=== PATIENT | female | born 1990 | race African-American/Black ===

== ENCOUNTER 2017-08-11 01:01 | Emergency (ER) | payer OTHER ==
[2017-08-11 01:10] VITALS: BP 137/94; PULSE 99; TEMP 98.2; BMI 37.2
[2017-08-11 03:02] LABS: BASO % 0.4 % (0-2.0); EOS % 0.9 % (0-4.5); HEMATOCRIT 34.1 % (32.4-45.2); HEMOGLOBIN 11.3 GM/dL (10.7-15.3); LYMPH % 31.8 % (8-40); MCH 28.9 pg (25.7-33.7); MCHC 33.1 g/dl (32.0-36.0); MEAN CELL VOLUME 87.2 fl (80-96); MEAN PLT VOLUME 8.2 fl (7.5-11.1); MONO % 7.7 % (3.8-10.2); NEUT % 59.2 % (42.8-82.8); PLATELET COUNT 165 K/MM3 (134-434); RBC 3.92 M/mm3 (3.60-5.2); RDW 14.1 % (11.6-15.6); WHITE BLOOD COUNT 6.8 K/mm3 (4.0-10.0)
--- NOTE | 2017-08-11 03:05 | PDOC ---
History of Present Illness <Karen Parada - Last Filed: 08/11/17 03:52> - General History Source: Patient Exam Limitations: No Limitations - History of Present Illness Initial Comments: 08/11/17 04:18 The patient is a 26 year old female with a past medical history of anemia who presents to the ED with complaints of chest pain since earlier today. The patient states she was at work when she had a sudden onset of non radiating mid sternal chest pain. The patient states her chest pain is progressively worsening and sharp. Patient reports recent travels to [facility] in July. Denies fever or chills. Denies lower extremity edema or pain. Denies sore throat or ear pain. Denies cough or shortness of breath. Denies nausea, vomiting , or diarrhea. Denies any other symptoms. 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 <Estephania Joe - Last Filed: 08/11/17 04:19> - General Chief Complaint: Chest Pain Stated Complaint: CHEST PAIN Time Seen by Provider: 08/11/17 01:09 Past History - Past Medical History Anemia: Yes COPD: No - Suicide/Smoking/Psychosocial Hx Smoking History: Never smoked Information on smoking cessation initiated: No Hx Alcohol Use: No Drug/Substance Use Hx: No Substance Use Type: None <Karen Parada - Last Filed: 08/11/17 03:52> <Estephania Joe - Last Filed: 08/11/17 04:19> - Past Medical History Allergies/Adverse Reactions: Allergies Allergy/AdvReac Type Severity Reaction Status Date / Time No Known Allergies Allergy Verified 08/11/17 01:05 Home Medications: Ambulatory Orders NK [No Known Home Medication] 08/11/17 Review of Systems - Review of Systems Able to Perform ROS?: Yes Comments:: 08/11/17 04:18 CONSTITUTIONAL: Absent: fever, chills, diaphoresis, generalized weakness, malaise, loss of appetite HEENT: Absent: rhinorrhea, nasal congestion, throat pain, throat swelling, difficulty swallowing, mouth swelling, ear pain, eye pain, visual Changes CARDIOVASCULAR: + chest pain Absent: syncope, palpitations, irregular heart rate, lightheadedness, peripheral edema RESPIRATORY: Absent: cough, shortness of breath, dyspnea with exertion, orthopnea, wheezing, stridor, hemoptysis GASTROINTESTINAL: Absent: abdominal pain, abdominal distension, nausea, vomiting, diarrhea, constipation, melena, hematochezia GENITOURINARY: Absent: dysuria, frequency, urgency, hesitancy, hematuria, flank pain, genital pain MUSCULOSKELETAL: Absent: myalgia, arthralgia, joint swelling SKIN: Absent: rash, itching, pallor HEMATOLOGIC/IMMUNOLOGIC: Absent: easy bleeding, easy bruising, lymphadenopathy, frequent infections ENDOCRINE: Absent: unexplained weight gain, unexplained weight loss, heat intolerance, cold intolerance NEUROLOGIC: Absent: headache, focal weakness or paresthesias, dizziness, unsteady gait, seizure, mental status changes, bladder or bowel incontinence PSYCHIATRIC: Absent: anxiety, depression, suicidal or homicidal ideation, hallucinations. All Other Systems: Reviewed and Negative <Estephania Joe - Last Filed: 08/11/17 04:19> *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 - Vital Signs Last Vital Signs Temp Pulse Resp BP Pulse Ox 98.2 F 99 H 19 137/94 98 08/11/17 01:03 08/11/17 01:03 08/11/17 01:03 08/11/17 01:03 08/11/17 01:03 <Karen Parada - Last Filed: 08/11/17 03:52> - Vital Signs Last Vital Signs Temp Pulse Resp BP Pulse Ox 98.2 F 99 H 19 137/94 98 08/11/17 01:03 08/11/17 01:03 08/11/17 01:03 08/11/17 01:03 08/11/17 01:03 - 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 Comments: 08/11/17 04:18 GENERAL: Well developed, well nourished. Awake and alert. No acute distress. HEENT: Normocephalic, atraumatic. PERRLA, EOMI. No conjunctival pallor. Sclera are non- icteric. Moist mucous membranes. Oropharynx is clear. NECK: Supple. Full ROM. No JVD. Carotid pulses 2+ and symmetric, without bruits. No thyromegaly. NCo lymphadenopathy. CARDIOVASCULAR: Regular rate and rhythm. No murmurs, rubs, or gallops. Distal pulses are 2+ and symmetric. PULMONARY: No evidence of respiratory distress. Lungs clear to auscultation bilaterally. No wheezing, rales or rhonchi. ABDOMINAL: Soft. Non-tender. Non-distended. No rebound or guarding. No organomegaly. Normoactive bowel sounds. MUSCULOSKELETAL Normal range of motion at all joints. No bony deformities or tenderness. No CVA tenderness. EXTREMITIES: No cyanosis. No clubbing. No edema. No calf tenderness. SKIN: Warm and dry. Normal capillary refill. No rashes. No jaundice. NEUROLOGICAL: Alert, awake, appropriate. Cranial nerves 2-12 intact. No deficits to light touch and temperature in face, upper extremities and lower extremities. No motor deficits in the in face, upper extremities and lower extremities. Normoreflexic in the upper and lower extremities. Normal speech. Toes are down- going bilaterally. Gait is normal without ataxia. PSYCHIATRIC: Cooperative. Good eye contact. Appropriate mood and affect. <Estephania Joe - Last Filed: 08/11/17 04:19> ED Treatment Course - LABORATORY CBC & Chemistry Diagram: 08/11/17 02:25 08/11/17 02:25 - RADIOLOGY Radiology Studies Ordered: Category Date Time Status CHEST PA & LAT [RAD] Stat Radiology 08/11/17 02:34 Ordered <Karen Parada - Last Filed: 08/11/17 03:52> - LABORATORY CBC & Chemistry Diagram: 08/11/17 02:25 08/11/17 02:25 - ADDITIONAL ORDERS Additional order review: Laboratory Results 08/11/17 08/11/17 08/11/17 02:25 02:25 02:25 PT with INR 13.10 H INR 1.16 H Sodium 139 Potassium 3.9 Chloride 103 Carbon Dioxide 27 Anion Gap 9 BUN 16 Creatinine 1.0 Creat Clearance w eGFR > 60 Random Glucose 90 Calcium 8.6 Total Bilirubin 0.4 AST 15 ALT 17 Alkaline Phosphatase 90 Creatine Kinase 269 H Creatine Kinase Index 0.6 CK-MB (CK-2) 1.665 Troponin I < 0.02 Total Protein 7.5 Albumin 3.7 Serum , Qual Negative 08/11/17 02:25 RBC 3.92 MCV 87.2 MCHC 33.1 RDW 14.1 MPV 8.2 Neutrophils % 59.2 Lymphocytes % 31.8 Monocytes % 7.7 Eosinophils % 0.9 Basophils % 0.4 <Estephania Joe - Last Filed: 08/11/17 04:19> Medical Decision Making - Medical Decision Making 08/11/17 03:52 Pt comes with atypical chest pain that began earlier today. SHe states that the pain is MSCP and epigastric. Pt has normal vitals and she is afebrile and he has no tachycardia and no fever and no cough and her BP is equal in her arms bilaterally. SHe has an EKG that shows anteroseptal flipped T waves and we have nothing to compare it to. We are getting a repeat EKG. Pt's cardiac enzymes and all of her labs are normal. She states that she may be , as she has irreg menses and she is not sure. Pt has a negative serum preg. Pt's CXR is normal. Pt states that she traveled 2 days ago from [place]. Pt seems anxious; she states that her mom is really ill at [facility] with her DM , HTN, distal leg wounds and impending kidney failure. Pt is upset and her current CP may be a manifestation of her emotional upset. <Karen Parada - Last Filed: 08/11/17 03:52> *DC/Admit/Observation/Transfer - Discharge Dispostion Admit: No <Karen Parada - Last Filed: 08/11/17 03:52> - Attestations Scribe Attestion: 08/11/17 04:19 Documentation prepared by Estephania Joe, acting as medical pathology teacher for Karen Parada MD <Estephania Joe - Last Filed: 08/11/17 04:19> Diagnosis at time of Disposition: Atypical chest pain - Discharge Dispostion Disposition: HOME Condition at time of disposition: Stable - Referrals Referrals: Felice Garzno MD [Staff Physician] - - Patient Instructions Printed Discharge Instructions: DI for Atypical Chest Pain
[2017-08-11 03:21] LABS: INR 1.16 (0.82-1.09); PROTHROMBIN TIME (PATIENT) 13.1 SEC (9.98-11.88)
[2017-08-11 03:40] LABS: ALBUMIN 3.7 g/dl (3.4-5.0); ANION GAP 9 (8-16); BILIRUBIN,TOTAL 0.4 mg/dL (0.2-1.0); BLOOD UREA NITROGEN 16 mg/dL (7-18); CALCIUM 8.6 mg/dL (8.5-10.1); CHLORIDE 103 mmol/L (98-107); CO2 27 mmol/L (21-32); GLUCOSE,RANDOM 90 mg/dL (74-106); POTASSIUM 3.9 mmol/L (3.5-5.1); SGOT/AST 15 U/L (15-37); SGPT/ALT 17 U/L (12-78); SODIUM 139 mmol/L (136-145); TOT PROT 7.5 g/dl (6.4-8.2)
[2017-08-11 03:43] LABS: ALK PHOS 90 U/L (45-117)
[2017-08-11] MEDS ORDERED: MAG HYDROX/AL HYDROX/SIMETH 30 ML UNIT-DOSE CUP PO ONE (04:12)
[2017-08-11] MEDS ORDERED: ACETAMINOPHEN 500 MG TABLET (FP) PO ONE (04:12)
[2017-08-11] MEDS ORDERED: MAG HYDROX/AL HYDROX/SIMETH 30 ML UNIT-DOSE CUP ONE (04:14)
[2017-08-11] MEDS ORDERED: ACETAMINOPHEN 325 MG TABLET (FP) ONE (04:14)
--- NOTE | 2017-08-11 10:42 | EKG ---
Test Reason : Blood Pressure : / mmHG Vent. Rate : 091 BPM Atrial Rate : 091 BPM P-R Int : 170 ms QRS Dur : 084 ms QT Int : 366 ms P-R-T Axes : 051 037 012 degrees QTc Int : 450 ms NORMAL SINUS RHYTHM T WAVE ABNORMALITY, CONSIDER ANTERIOR ISCHEMIA ABNORMAL ECG NO PREVIOUS ECGS AVAILABLE Confirmed by FREDY BARCLAY, KRYSTAL ([id number]) on 08/11/2017 10:42:07 AM Referred By: Confirmed By:KRYSTAL DANIEL MD
--- NOTE | 2017-08-12 14:32 | EKG ---
Test Reason : Blood Pressure : / mmHG Vent. Rate : 074 BPM Atrial Rate : 074 BPM P-R Int : 160 ms QRS Dur : 096 ms QT Int : 380 ms P-R-T Axes : 053 019 003 degrees QTc Int : 421 ms NORMAL SINUS RHYTHM WITH SINUS ARRHYTHMIA Nonspecific anterior t wave abnormalities ABNORMAL ECG WHEN COMPARED WITH ECG OF 11-AUG-2017 01:10, NO SIGNIFICANT CHANGE WAS FOUND Confirmed by MD Mercedes, Abran ([id number]) on 08/12/2017 2:32:23 PM Referred By: Confirmed By:Abran Long MD
== END 2017-08-11 04:11 | disposition home or self-care (01) ==
LOC: JER 01:01
DX: R07.89 Other chest pain (principal)
CPT/HCPCS: 36415; 71046-TC-FY; 80053; 82550; 82553; 84484; 84703; 85025; 85610; 93005; 93010; 99283-25

== ENCOUNTER 2017-12-21 13:20 | Emergency (ER) | payer OTHER ==
[2017-12-21 13:30] VITALS: BP 141/82; PULSE 82; TEMP 98.3; BMI 30.4
--- NOTE | 2017-12-21 13:56 | PDOC ---
History of Present Illness - General Chief Complaint: Rash Stated Complaint: SKIN RASH Time Seen by Provider: 12/21/17 13:45 History Source: Patient Exam Limitations: Clinical Condition - History of Present Illness Initial Comments: 12/21/17 13:52 Patient no sig PMhx present with complains of dark rash with itching all over the for almost as week now. report she saw PCP who gave her clotrimazole topical cream which she has been using with no improvement. report rash on b/l UE, upper chest , upper back and neck areas on unknown etiology Timing/Duration: 1 week Severity: mild Modifying Factors: improves with: other (scrathing ) Associated Symptoms: reports: rash Aspirin Received prior to arrival: Yes: no aspirin today Past History - Past Medical History Allergies/Adverse Reactions: Allergies Allergy/AdvReac Type Severity Reaction Status Date / Time No Known Allergies Allergy Verified 12/21/17 13:30 Home Medications: Ambulatory Orders Hydrocortisone 2.5% Topical Cr [Anusol-Hc -] 1 applic RC BID #1 tube 12/21/17 Prednisone [Deltasone] 20 mg PO BID #10 tablet 12/21/17 Anemia: Yes COPD: No - Suicide/Smoking/Psychosocial Hx Smoking History: Never smoked Have you smoked in the past 12 months: No Information on smoking cessation initiated: No Hx Alcohol Use: No Drug/Substance Use Hx: No Substance Use Type: None Review of Systems - Review of Systems Able to Perform ROS?: Yes Is the patient limited Persian proficient: No Constitutional: No: Chills, Diaphoresis, Fever, Loss of Appetite, Malaise, Night Sweats, Weakness, Weight Stable, Unintentional Wgt. Loss, Unexplained wgt Loss, Other HEENTM: No: Eye Pain, Blurred Vision, Tearing, Recent change in vision, Double Vision, Cataracts, Ear Pain, Ocular Prothesis, Ear Discharge, Nose Pain, Nose Congestion, Tinnitus, Nose Bleeding, Hearing Loss, Throat Pain, Throat Swelling , Mouth Pain, Dental Problems, Difficulty Swallowing, Mouth Swelling, Other Respiratory: No: Cough, Orthopnea, Shortness of Breath, SOB with Exertion, SOB at Rest, Stridor, Wheezing, Productive cough, Hemoptysis, Other Cardiac (ROS): No: Chest Pain, Edema, Irregular Heart Rate, Lightheadedness, Palpitations, Syncope, Chest Tightness, Other ABD/GI: No: Abdominal Distended, Abd. Pain w/ defecation, Blood Streaked Bowels , Constipated, Diarrhea, Difficulty Swallowing, Nausea, Poor Appetite, Poor Fluid Intake, Rectal Bleeding, Vomiting, Indigestion, Abdominal cramping, Tarry Stools, Other Musculoskeletal: No: Back Pain, Gout, Joint Pain, Joint Swelling, Muscle Pain, Muscle Weakness, Neck Pain, Joint Stiffness, Other Integumentary: Yes: Pruritus (all over the body), Rash (to b/l UE, upper chest and upper back). No: Symptoms Reported, See HPI, Bruising, Change in Color, Change in Hair/Nails, Dryness, Erythema, Flushing, Lesions, Lumps, Pallor, Sweating, Other Neurological: No: Headache, Numbness, Paresthesia, Pre-Existing Deficit, Seizure , Tingling, Tremors, Weakness, Unsteady Gait, Ataxia, Dizziness, Other Psychiatric: No: Anxiety, Depression, Frequent Crying, Stressors, Sleep Pattern Change, Emotional Problems, Mood Swings, Change in Appetite, Other All Other Systems: Reviewed and Negative *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 - Vital Signs Last Vital Signs Temp Pulse Resp BP Pulse Ox 98.3 F 82 18 141/82 100 12/21/17 13:25 12/21/17 13:25 12/21/17 13:25 12/21/17 13:25 12/21/17 13:25 - 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 General Appearance: Yes: Nourished, Appropriately Dressed. No: Apparent Distress HEENT: positive: Normal ENT Inspection, TMs Normal, Pharynx Normal Neck: positive: Trachea midline, Normal Thyroid, Supple Respiratory/Chest: positive: Lungs Clear, Normal Breath Sounds. negative: Respiratory Distress, Accessory Muscle Use Cardiovascular: positive: Regular Rhythm, Regular Rate, S1, S2 Gastrointestinal/Abdominal: positive: Normal Bowel Sounds, Flat, Soft Musculoskeletal: positive: Normal Inspection Extremity: positive: Normal Capillary Refill, Normal Range of Motion Integumentary: positive: Rash (multiple dark macular rash with scales to plantar aspect of b/l UE, upper chest, neck area and upper back w/o excoriations ) Neurologic: positive: certified personal finance counselor II-XII NML intact, Fully Oriented, Alert, Normal Mood/ Affect, Normal Response Medical Decision Making - Medical Decision Making 12/21/17 13:54 Patient present with over a week h/o rash with pruritis. likely eczema rash. stable for outpatient treatment with topical and oral steroids with dermatology follow-up *DC/Admit/Observation/Transfer Diagnosis at time of Disposition: Dermatitis Eczema Qualifiers: Eczema type: unspecified Qualified Code(s): L30.9 - Dermatitis, unspecified - Discharge Dispostion Disposition: HOME Condition at time of disposition: Good Decision to Admit order: No - Prescriptions Prescriptions: Hydrocortisone 2.5% Topical Cr [Anusol-Hc -] 1 applic RC BID #1 tube Prednisone [Deltasone] 20 mg PO BID #10 tablet - Referrals Referrals: Cosmo Mcgee MD [Non Staff, Medical] - - Patient Instructions Printed Discharge Instructions: Eczema, DI for Atopic Dermatitis - Adult Additional Instructions: use medications as prescribed. follow-up with dermatology - Post Discharge Activity
== END 2017-12-21 14:01 | disposition home or self-care (01) ==
LOC: JERFT 13:20
DX: L30.9 Dermatitis, unspecified (principal)
CPT/HCPCS: 99281-25

== ENCOUNTER 2018-02-18 19:05 | Emergency (ER) | payer OTHER ==
[2018-02-18 19:09] VITALS: BP 125/73; PULSE 67; TEMP 98.3; BMI 35.1
[2018-02-18] MEDS ORDERED: FLUORESCEIN NA 1 EA STRIP ONE (19:19)
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
== END 2018-02-18 21:31 | disposition home or self-care (01) ==
LOC: JERFT 19:05
DX: S05.11XA Contusion of eyeball and orbital tissues, right eye, initial encounter (principal); X58.XXXA Exposure to other specified factors, initial encounter; Y93.89 Activity, other specified
CPT/HCPCS: 70486-TC; 84703; 99281-25

== ENCOUNTER 2020-03-14 15:48 | Inpatient (IN) | payer OTHER ==
--- OUTSIDE RECORDS SUMMARY | 2020-03-14 16:39 | XMS ---
:1998 Author Organization [facility] Re-disclosure Warning The records that you are about to access may contain information from federally- assisted alcohol or drug abuse programs. If such information is present, then the following federally mandated warning applies: This information has been disclosed to you from records protected by federal confidentiality rules (42 CFR part 2). The federal rules prohibit you from making any further disclosure of this information unless further disclosure is expressly permitted by the written consent of the person to whom it pertains or as otherwise permitted by 42 CFR part 2. A general authorization for the release of medical or other information is NOT sufficient for this purpose. The Federal rules restrict any use of the information to criminally investigate or prosecute any alcohol or drug abuse patient.The records that you are about to access may contain highly sensitive health information, the redisclosure of which is protected by Article 27-F of the [facility] Public Health law. If you continue you may haveaccess to information: Regarding HIV / AIDS; Provided by facilities licensed or operated by the [facility] Office of Mental Health; or Provided by the [facility] Office for People With Developmental Disabilities. If such information is present, then the following [facility] mandated warning applies: This information has been disclosed to you from confidential records which are protected by state law. State law prohibits you from making any further disclosure of this information without the specific written consent of the person to whom it pertains, or as otherwise permitted by law. Any unauthorized further disclosure in violation of state law may result in a fine or chcf sentence or both. A general authorization for the release of medical or other information is NOT sufficient authorization for further disclosure. Problems, Conditions, and Diagnoses Code Display Name Description Problem Type Effective Dates Data Source(s) Z71.89 Other specified Other specified Diagnosis 08/07/2018 [facility] counseling counseling 04:19:30 PM [facility]) Z68.41 Body mass index Body mass index Diagnosis 08/07/2018 [facility] (BMI) 40.0-44.9, (BMI) 40.0-44.9, 04:19:30 PM E [facility] adult [facility])
[2020-03-14] MEDS: ELECTROLYTE-148 SOLN 1,000 ML IV SCH (17:45)
[2020-03-14 17:46] VITALS: BMI 42.3
[2020-03-14 17:51] LABS: BASO % 0.4 % (0-2.0); EOS % 0.2 % (0-4.5); HEMATOCRIT 40.3 % (32.4-45.2); HEMOGLOBIN 13.5 GM/dL (10.7-15.3); INR 0.98 (0.83-1.09); LYMPH % 30.7 % (8-40); MCH 31.6 pg (25.7-33.7); MCHC 33.5 g/dl (32.0-36.0); MEAN CELL VOLUME 94.5 fl (80-96); MEAN PLT VOLUME 10.7 fl (7.5-11.1); MONO % 6.3 % (3.8-10.2); NEUT % 62.4 % (42.8-82.8); PLATELET COUNT 97 K/MM3 (134-434); PROTHROMBIN TIME (PATIENT) 11.6 SEC (9.7-13.0); RBC 4.27 M/mm3 (3.60-5.2); RDW 14.9 % (11.6-15.6); WHITE BLOOD COUNT 5.1 K/mm3 (4.0-10.0)
[2020-03-14] MEDS ORDERED: CITRIC ACID/SODIUM CITRATE 30 ML UNIT-DOSE CUP PO ONE (17:54)
[2020-03-14] MEDS ORDERED: ELECTROLYTE-148 SOLN 500 ML IV ONE (17:54)
[2020-03-14 18:14] LABS: BLOOD UREA NITROGEN 12.3 mg/dL (7-18); CALCIUM 9.5 mg/dL (8.5-10.1); CREATININE 0.7 mg/dL (0.55-1.3); POTASSIUM 4.2 mmol/L (3.5-5.1)
--- NOTE | 2020-03-14 18:24 | HP ---
Past Medical History - Primary Care Physician PCP:: Yolanda Haynes - Admission Chief Complaint: 29 yrs , 39 wks by dates, 38 wks by us admitted for delivery as per MFM recommendation . insulin dependent GDM, Macrosomia .38 wks iup, vx, efw 9'9",bpp 8/8 in view of new onset of htn ( 139/92 136/91 ) delivery is advised.pt c/o headache 2 days ago .not today History of Present Illness: pnc at [address] [place] [address] wt gain 60 lbs panel Apos, Hbsag neg, rubella immune, Quantiferon neg , t pallidumab nr, hiv neg , h/h 12.6/38.0, plt 192, sickle ng, gc/ct neg 02/25/20 : hiv neg, GBS POS , Gc.Ct neg , h/h 12.4/36.2, plt 103 12/22/19 1 hr GTT 321m , h/h 12.0/37,4 , plt 148 , hep c nr, hiv nr, , tpallidum neg BP range in clinic systolic 888339/ distolic 72-83, BP max 136/83, urine protein 1+/trace, once 2+ [facility]. 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 Weeks Gestation by Dates: 39.0 ...EDC by Dates: 03/21/20 ...EDC by Sono: 03/28/20 (38 weeks by us ) Heme/Onc: No: Anemia, Sickle Cell Trait Infectious Disease: No: AIDS, HIV, STD's, Tuberculosis Psych: No: Addictions, Anxiety, Bipolar, Depression, Panic, Psychosis, Schizophrenia, Other - Past Surgical History Past Surgical History: Yes: None Hx Myomectomy: No Hx Transabdominal Cerclage: No - Smoking History Smoking history: Never smoked Have you smoked in the past 12 months: No - Alcohol/Substance Use Hx Alcohol Use: No History of Substance Use: reports: None Home Medications - Allergies Allergies/Adverse Reactions: Allergies Allergy/AdvReac Type Severity Reaction Status Date / Time No Known Allergies Allergy Verified 03/14/20 17:33 - Home Medications Home Medications: Ambulatory Orders Insulin NPH Hum/Reg Insulin Hm [Humulin 70/30 Kwikpen] 10 unit SQ HS 03/14/20 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 - Maternity Vital Signs: Vital Signs Temperature 98.1 F 03/14/20 15:48 Pulse Rate 85 03/14/20 16:45 Respiratory Rate 18 03/14/20 16:45 Blood Pressure 121/78 03/14/20 16:45 O2 Sat by Pulse Oximetry (%) Selected Entries 03/14/20 03/14/20 03/14/20 15:48 16:15 16:30 Blood Pressure 108/54 L 115/71 118/72 Weight 287 lb Constitutional: Yes: Well Nourished, No Distress, Calm, Obese Eyes: Yes: WNL HENT: Yes: WNL, Normocephalic Neck: Yes: WNL Cardiovascular: Yes: WNL Lungs: Clear to auscultation Breast(s): Yes: WNL - Abdominal Exam/OB Fundal Height: 45 Number of Fetuses: Single Presentation: Vertex Contractions: Yes Regularity: Irregular Intensity: Unaware Monitor Mode: External Heart Rate (range): 145 Heart Rate Location: Midline Category: I Accelerations: Uniform Decelerations: None - Vaginal Exam/OB Vaginal Bleeding: No Dilatation (cm): close Effacement (%): unefface Amniotic Membrane Status: Intact Presentation: Vertex/Position Station: -4 - 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 Musculoskeletal: Yes: WNL Extremities: Yes: WNL. No: Calf Tenderness Edema: Yes Edema: LLE: 1+, RLE: 1+ Integumentary: Yes: WNL Deep Tendon Reflex Grade: Normal +2 ...Motor Strength: WNL Psychiatric: Yes: WNL, Alert, Oriented - Labs Lab Results: CBC, BMP 03/14/20 17:15 03/14/20 17:15 Laboratory Tests 03/14/20 03/14/20 17:15 18:40 Uric Acid 4.0 AST 29 ALT 35 Ur Random Creatinine 131.0 U Random Total Protein 97.0 H Protein/Creatinin Ratio 0.7 Hemorrhage Risk Assessment - Risk Factors Medium Risk Factors: Yes: Obesity (BMI >40) Risk Score: 1 Risk Level: Medium Risk Problem List - Problems (1) 39 weeks gestation of Code(s): Z3A.39 - 39 WEEKS GESTATION OF (2) Gestational diabetes mellitus (GDM) requiring insulin Code(s): O24.414 - GESTATIONAL DIABETES IN , INSULIN CONTROLLED (3) Morbid obesity with BMI of 40.0-44.9, adult Code(s): E66.01 - MORBID (SEVERE) OBESITY DUE TO EXCESS CALORIES; Z68.41 - BODY MASS INDEX [BMI]40.0-44.9, ADULT (4) Macrosomia affecting management of mother in third trimester Code(s): O36.63X0 - MATERNAL CARE FOR EXCESS GROWTH, THIRD TRIMESTER, UNSP (5) Positive GBS test Code(s): B95.1 - STREPTOCOCCUS, GROUP B, CAUSING DISEASES CLASSD ELSWHR Assessment/Plan 29 yrs 39 weeks dates, by 38 weeks by us , GDM insulin control , ? gesta tional lower plt count, macrosomia .. lft & uric acid wnl, urine prot/cr ratio 0.7 cervix unfavorable for induction of labor, pt difficult to exam vaginally. Plan rb/a explained to pt risk c/s not ltd to wound infection, hematoma; may encounter difficulty delivering baby, injury bladder, bowel , hemorrhage etc pt understands , opt for delivery by primary c/section
[2020-03-14 19:23] LABS: BILIRUBIN,DIRECT 0.2 mg/dL (0.0-0.2); BILIRUBIN,TOTAL 0.7 mg/dL (0.2-1); TOT PROT 6.9 g/dl (6.4-8.2)
[2020-03-14] MEDS ORDERED: OXYTOCIN 20 UNITS in 0.9% NS 20 UNIT/1,000 ML INFUS.BAG IV ONE ×2 (19:32→22:26)
[2020-03-14] MEDS ORDERED: ePHEDrine SULFATE 50 MG/1 ML AMPULE ONE (19:34)
[2020-03-14] MEDS ORDERED: morphine SULFATE/PF 0.5 MG/ML (2cc Syringe - QUVA) ONE (19:34)
[2020-03-14] MEDS ORDERED: PHENYLEPHRINE HCL 10 MG/1 ML SINGLE DOSE VIAL ONE (19:34)
[2020-03-14] MEDS ORDERED: ceFAZolin SODIUM 1 GM VIAL ONE (20:02)
[2020-03-14] MEDS ORDERED: METHYLERGONOVINE MALEATE 0.2 MG/1 ML AMP IM PRN (21:38)
[2020-03-14] MEDS ORDERED: oxyCODONE HCL 5 MG TABLET PO PRN (21:38)
[2020-03-14] MEDS ORDERED: SENNOSIDES/DOCUSATE COMBO (SENNA PLUS) TABLET (UD) PO PRN (21:38)
[2020-03-14] MEDS: OXYTOCIN 20 UNITS in 0.9% NS 20 UNIT/1,000 ML INFUS.BAG IV SCH (21:45)
[2020-03-14] MEDS ORDERED: ONDANSETRON 4 MG/2 ML VIAL IVPUSH PRN (21:45)
--- NOTE | 2020-03-14 22:07 | PN ---
Delivery - Delivery Section: Primary, Low Flap Transverse (38 weeks, insulin dpemdent GDM, macrosomia, morbid obesity,unfavorable cx) Type of Anesthesia: Spinal EBL (cc): 800 Delivery, Single - Stages of Labor Date of Delivery: 03/14/20 Time of Delivery: 20:18 Date Placenta Delivered: 03/14/20 Time Placenta Delivered: 20:20 Placenta: Yes: Manual Removal, Uterine Exploration - Condition of Drywall Application Supervisor/Molasses Preparer Present: Yes Name: Edwina Minor Gender: Female Weight: 9 lb 10 oz Position: Right, OT - 1 Minute Total Score: 7 5 Minutes Total Score: 9 - Feeding Plan Initial Plan: Exclusive throughout hospitalization Remarks - Remarks Remarks: 29 yrs , 38 weeks recommend delivery by MFM due to new onet HTN noted in MFM off , h/o Insulin dependent GDM morbidly obese BMI 42.4 gbs pos srom in OR just before spinal given. intraop course uneventful 2 gm iv ancef prior to incision given
--- NOTE | 2020-03-14 22:38 | OP ---
Operative Note - Note: Operative Date: 03/14/20 Pre-Operative Diagnosis: 38 weeks, insulin dependent GDM, morbid obesity, macrosomia , unfavorable cx Operation: Primary LFTC/Section Findings: 20.18 hr baby girl.vx, ROT, 7/9, wt 9'10" both tubes & ovaries normal Dr Minor present in OR Note bladder high in incision , transversely parital peritoneum opened , bilat rectus muscle disection Surgeon: Yolanda Haynes Threat Monitoring Analyst: Kimani West Anesthesiologist/SPLINE ROLLING MACHINE JOB SETTER: Deniz Cates Anesthesia: Spinal Specimens Removed: cord segment for gas. cord blood. placenta Estimated Blood Loss (mls): 800 Drains, Volume Out (mls): 300 Fluid Volume Replaced (mls): 1,600 (2gm iv ancef ) Operative Report Dictated: Yes
[2020-03-14] MEDS ORDERED: IBUPROFEN 800 MG/8 ML IJ IVPB ONE (23:18)
[2020-03-14 23:26] LABS: CORD HCO3 24.4 mmHg (20-29); CORD PCO2 80.3 mmHg (30-78); CORD pH 7.101 (7.14-7.44)
[2020-03-14 23:28] LABS: CORD BASE EXCESS -8.3 mmol/L (0-2); CORD HCO3 20.3 mmHg (20-29); CORD PCO2 53.3 mmHg (30-78); CORD pH 7.198 (7.14-7.44)
[2020-03-14] MEDS: IBUPROFEN 800 MG/8 ML IJ IVPB PRN (23:30)
[2020-03-15] MEDS: CEFAZOLIN 1 GM/D5W 1 GM/50 ML BAG IVPB SCH ×3 (01:27→18:22)
--- NOTE | 2020-03-15 08:11 | PN ---
Post Progress Note - Subjective Subjective: c/o itching pain scale 2-3/10 Post Day: 1 Type of Delivery: Primary C/S Vital Signs: Vital Signs Temperature 99.1 F 03/15/20 06:00 Pulse Rate 101 H 03/15/20 06:00 Respiratory Rate 20 03/15/20 06:00 Blood Pressure 115/78 03/15/20 06:00 O2 Sat by Pulse Oximetry (%) 98 03/15/20 01:32 Selected Entries 03/14/20 03/15/20 03/15/20 23:00 00:00 01:00 Blood Pressure 149/95 146/84 147/86 03/15/20 01:32 Blood Pressure 126/86 Breast Exam: Yes: Soft, Other (plans to BF ). No: Engorged Uterus: Yes: Fundus Firm, Fundus below umbilicus (tender ) Incision: Yes: Dressing dry and intact, Redness Abdomen/GI: Yes: Abdomen soft (bs active ), Abdominal Distention (obese), Tolerating PO (po clear liqiud ). No: Passing flatus Lochia: Yes: Rubra Lochia, amount: Moderate Extremities: Yes: Calves non-tender, Edema (scd in situ ) Perineum: Yes: Intact Activity: Other (pt with caicedo in situ ) - Labs Labs: CBC WBC 5.1 K/mm3 (4.0-10.0) 03/14/20 17:15 RBC 4.27 M/mm3 (3.60-5.2) 03/14/20 17:15 Hgb 13.5 GM/dL (10.7-15.3) 03/14/20 17:15 Hct 40.3 % (32.4-45.2) D 03/14/20 17:15 MCV 94.5 fl (80-96) 03/14/20 17:15 MCH 31.6 pg (25.7-33.7) 03/14/20 17:15 MCHC 33.5 g/dl (32.0-36.0) 03/14/20 17:15 RDW 14.9 % (11.6-15.6) 03/14/20 17:15 Plt Count 97 K/MM3 (134-434) L D 03/14/20 17:15 MPV 10.7 fl (7.5-11.1) D 03/14/20 17:15 Absolute Neuts (auto) 3.2 K/mm3 (1.5-8.0) 03/14/20 17:15 Neutrophils % 62.4 % (42.8-82.8) 03/14/20 17:15 Lymphocytes % 30.7 % (8-40) 03/14/20 17:15 Monocytes % 6.3 % (3.8-10.2) 03/14/20 17:15 Eosinophils % 0.2 % (0-4.5) 03/14/20 17:15 Basophils % 0.4 % (0-2.0) 03/14/20 17:15 Nucleated RBC % 0 % (0-0) 03/14/20 17:15 Laboratory Tests 03/14/20 03/15/20 22:58 06:30 POC Glucometer 83 81 Other Findings, Remarks: RS Cta i/o 2000/400 & 700/400 Problem List - Problems (1) 39 weeks gestation of Code(s): Z3A.39 - 39 WEEKS GESTATION OF (2) Gestational diabetes mellitus (GDM) requiring insulin Code(s): O24.414 - GESTATIONAL DIABETES IN , INSULIN CONTROLLED (3) Morbid obesity with BMI of 40.0-44.9, adult Code(s): E66.01 - MORBID (SEVERE) OBESITY DUE TO EXCESS CALORIES; Z68.41 - BODY MASS INDEX [BMI]40.0-44.9, ADULT (4) Macrosomia affecting management of mother in third trimester Code(s): O36.63X0 - MATERNAL CARE FOR EXCESS GROWTH, THIRD TRIMESTER, UNSP (5) Positive GBS test Code(s): B95.1 - STREPTOCOCCUS, GROUP B, CAUSING DISEASES CLASSD ELSWHR (6) delivery due to maternal disorder, delivered, curr hospitaliz Code(s): O99.892 - OTH DISEASES AND CONDITIONS COMPLICATING CHILDBIRTH (7) Status post section routine follow-up Code(s): Z39.2 - ENCOUNTER FOR ROUTINE FOLLOW-UP; Z98.891 - HISTORY OF UTERINE SCAR FROM PREVIOUS SURGERY Assessment/Plan post op P C/sec stable BP labile . po bgm wnl pt encouraged to do deep breathing, ambulation when caicedo is d/c ed , po fluids in NICU due to hypoglycemia will advance diet to 2500 argenis ADA when passes flatus Po cbc pending
--- NOTE | 2020-03-15 08:15 | PN ---
Progress Note (short form) - Note Progress Note: Anesthesia POD#1 S/P under Spinal A VSS, no N/V, legs fully recovered, pain is well controlled. Ida Curtis MD.
[2020-03-15] MEDS: IBUPROFEN 800 MG/8 ML IJ IVPB PRN (08:21)
[2020-03-15] MEDS: SIMETHICONE 80 MG TAB.CHEW (FP) PO PRN ×3 (08:21→22:46)
[2020-03-15 09:16] LABS: BASO % 0.2 % (0-2.0); EOS % 0.4 % (0-4.5); HEMATOCRIT 35.1 % (32.4-45.2); HEMOGLOBIN 11.8 GM/dL (10.7-15.3); LYMPH % 18.8 % (8-40); MCH 31.2 pg (25.7-33.7); MCHC 33.6 g/dl (32.0-36.0); MEAN CELL VOLUME 92.8 fl (80-96); MEAN PLT VOLUME 11.1 fl (7.5-11.1); MONO % 8.3 % (3.8-10.2); NEUT % 72.3 % (42.8-82.8); PLATELET COUNT 88 K/MM3 (134-434); RBC 3.78 M/mm3 (3.60-5.2); RDW 14.7 % (11.6-15.6); WHITE BLOOD COUNT 6.7 K/mm3 (4.0-10.0)
[2020-03-15] MEDS: ENOXAPARIN NA (PORCINE) 40 MG/0.4 ML DISP.SYRIN SQ SCH (09:28)
[2020-03-15] MEDS: IBUPROFEN 600 MG TABLET (FP) PO PRN (16:31)
[2020-03-15] MEDS: ACETAMINOPHEN 325 MG TABLET (FP) PO PRN ×2 (16:31→22:47)
[2020-03-15] MEDS: ELECTROLYTE-148 SOLN 1,000 ML IV SCH (18:28)
[2020-03-15] MEDS ORDERED: BISACODYL 10 MG SUPP.RECT RC PRN (21:38)
--- NOTE | 2020-03-16 07:09 | PN ---
Post Progress Note - Subjective Subjective: Pain controlled. No fevers/chills. OOB, ambulating. Voiding freely. +Flatus Post Day: 2 Type of Delivery: Primary C/S Vital Signs: Vital Signs Temperature 98.5 F 03/16/20 02:00 Pulse Rate 103 H 03/16/20 02:00 Respiratory Rate 16 03/16/20 02:00 Blood Pressure 125/84 03/16/20 02:00 O2 Sat by Pulse Oximetry (%) 98 03/15/20 01:32 Uterus: Yes: Fundus below umbilicus Incision: Yes: Dressing dry and intact Abdomen/GI: Yes: Abdomen soft, Passing flatus, Tolerating PO Lochia: Yes: Rubra Perineum: Yes: Intact Activity: Ambulating - Labs Labs: CBC WBC 6.7 K/mm3 (4.0-10.0) 03/15/20 07:25 RBC 3.78 M/mm3 (3.60-5.2) 03/15/20 07:25 Hgb 11.8 GM/dL (10.7-15.3) 03/15/20 07:25 Hct 35.1 % (32.4-45.2) 03/15/20 07:25 MCV 92.8 fl (80-96) 03/15/20 07:25 MCH 31.2 pg (25.7-33.7) 03/15/20 07:25 MCHC 33.6 g/dl (32.0-36.0) 03/15/20 07:25 RDW 14.7 % (11.6-15.6) 03/15/20 07:25 Plt Count 88 K/MM3 (134-434) L 03/15/20 07:25 MPV 11.1 fl (7.5-11.1) 03/15/20 07:25 Absolute Neuts (auto) 4.8 K/mm3 (1.5-8.0) 03/15/20 07:25 Neutrophils % 72.3 % (42.8-82.8) 03/15/20 07:25 Lymphocytes % 18.8 % (8-40) D 03/15/20 07:25 Monocytes % 8.3 % (3.8-10.2) 03/15/20 07:25 Eosinophils % 0.4 % (0-4.5) D 03/15/20 07:25 Basophils % 0.2 % (0-2.0) 03/15/20 07:25 Nucleated RBC % 0 % (0-0) 03/15/20 07:25 Assessment/Plan 29yo s/p PLTCS, POD#1 Routine PP care OOB, ambulate Labs reviewed D/C to home by POD#4 (given baby in NICU) Regulo Adair MD
[2020-03-16] MEDS: ENOXAPARIN NA (PORCINE) 40 MG/0.4 ML DISP.SYRIN SQ SCH (10:25)
[2020-03-16] MEDS: FERROUS SO4 325 MG TABLET (FP) PO SCH ×2 (10:25→17:11)
[2020-03-16] MEDS: PRENATAL VITAMINS W/ FOLIC ACID TABLET (FP) PO SCH (10:26)
[2020-03-16] MEDS: SIMETHICONE 80 MG TAB.CHEW (FP) PO PRN ×2 (10:26→21:40)
--- NOTE | 2020-03-16 12:24 | OP ---
DATE OF OPERATION: 03/14/2020 PREOPERATIVE DIAGNOSIS: A 38-week , insulin-dependent gestational diabetes, morbid obesity and macrosomia, unfavorable cervix. POSTOPERATIVE DIAGNOSIS: A 38-week , insulin-dependent gestational diabetes, morbid obesity and macrosomia, unfavorable cervix. OPERATION: Primary low flap transverse section. SURGEON: Yolanda Haynes MD FARROWING MANAGER: EUGENE Hess ANESTHESIOLOGIST: Deniz Cates DO UNSCRAMBLER: Edwina Minor MD FINDINGS: This is a 29-year-old 1, para 0 with insulin-dependent gestational diabetes who was noted to have new onset of hypertension in the [facility] office and they recommended delivery. Since patient is very obese and macrosomia suspected and cervix was not favorable patient opted for a . Patient was not in labor. PROCEDURE: Abdomen was shaved, prepped. Armendariz catheter was placed. SCD stockings were applied. Patient was taken to operating room table. Spinal anesthesia was given. Patient was in supine position. Abdomen was painted and draped in the usual manner and panniculus belly. Before draping while preparing the abdomen, the abdomen was taped up to have a better access for the incision and then abdomen was prepared with ChloraPrep and draped in the usual manner. Pfannenstiel incision was made through skin and subcutaneous tissue. Anterior rectus sheath was incised transversely. Bleeding points were clamped and cauterized. Rectus muscle was from the rectus sheath. Parietal peritoneum was opened higher up and the bladder was very high. Could not open further more to have a better access. The muscles were bisected on both the sides and then the bladder was pressed down with a Anuja lower blade and the lower flap of bladder peritoneum was incised and the lower uterine segment was incised transversely. Amniotic fluid was clear. Then the baby was delivered from ROT position, baby girl at 8:18 p.m. and the baby's was 7, 9 and baby's weight was 9-pound, 10-ounce. Cord was clamped. Cord blood was collected. Cord segment was sent for the cord blood gases. Placenta was removed completely with the membranes. Then the uterus was brought out of the incision. The uterine cavity was cleaned and then the uterine incision was closed in 2 layers. First layer was a continuous locking with a Biosyn 0 suture. Second layer was a continuous intermittently locking with a Biosyn 0 suture. Then the bladder peritoneum also was closed with a Biosyn 0 suture. Both tubes and ovaries were normal. Uterus was placed back into the peritoneal cavity and then the parietal peritoneum was closed in transverse fashion with a Vicryl 0 suture. Muscles were approximated together with a Biosyn 0 suture. Hemostasis was checked underneath the rectus sheath. Then rectus sheath was closed with a Vicryl 0 suture. Continuous sutures were taken. Hemostasis was verified in subcutaneous tissue. Subcutaneous tissue was approximated with a 2-0 Vicryl suture. Continuous sutures were taken. Hemostasis once again checked and skin was approximated with trisha. Pressure dressing was given. Estimated blood loss was 800 mL and urine output intraoperative was 300 mL. She received 1600 mL of IV fluids. She received 2 g of IV Ancef prior to the incision. Blood clots were removed from the vagina. Pressure dressing applied and she was transferred to the recovery room in stable condition. David [id number]
[2020-03-16] MEDS: IBUPROFEN 600 MG TABLET (FP) PO PRN ×2 (12:51→21:39)
[2020-03-16] MEDS: ACETAMINOPHEN 325 MG TABLET (FP) PO PRN ×2 (12:52→21:40)
[2020-03-16] MEDS: OXYTOCIN 20 UNITS in 0.9% NS 20 UNIT/1,000 ML INFUS.BAG IV SCH ×2 (12:53→23:21)
[2020-03-16] MEDS: ELECTROLYTE-148 SOLN 1,000 ML IV SCH (23:21)
--- NOTE | 2020-03-17 07:25 | PN ---
Progress Note (short form) - Note Progress Note: pod 3 s/p c/s doing well. ambulating , had BM CBC, BMP 03/15/20 07:25 03/14/20 17:15 Last Vital Signs Temp Pulse Resp BP Pulse Ox 98.7 F 91 H 18 154/95 99 03/16/20 22:00 03/16/20 22:00 03/16/20 22:00 03/16/20 22:00 03/16/20 22:00 abdomen soft , no distensdion, no cva incision dry, clean , no discharge no calf tenderness lochia mild plan ambulate DVT prophylaxis plan for d/c home in am
[2020-03-17] MEDS: FERROUS SO4 325 MG TABLET (FP) PO SCH ×2 (09:00→17:25)
[2020-03-17 09:04] LABS: BASO % 0.3 % (0-2.0); HEMATOCRIT 31.8 % (32.4-45.2); HEMOGLOBIN 10.5 GM/dL (10.7-15.3); LYMPH % 18.9 % (8-40); MCH 30.9 pg (25.7-33.7); MCHC 33.1 g/dl (32.0-36.0); MEAN CELL VOLUME 93.5 fl (80-96); MEAN PLT VOLUME 10.2 fl (7.5-11.1); NEUT % 72.8 % (42.8-82.8); PLATELET COUNT 104 K/MM3 (134-434); WHITE BLOOD COUNT 6.9 K/mm3 (4.0-10.0)
[2020-03-17] MEDS: PRENATAL VITAMINS W/ FOLIC ACID TABLET (FP) PO SCH (12:03)
[2020-03-17] MEDS: ENOXAPARIN NA (PORCINE) 40 MG/0.4 ML DISP.SYRIN SQ SCH (12:03)
[2020-03-17] MEDS: ACETAMINOPHEN 325 MG TABLET (FP) PO PRN ×2 (16:46→23:59)
[2020-03-17] MEDS: IBUPROFEN 600 MG TABLET (FP) PO PRN ×2 (16:47→23:58)
[2020-03-17] MEDS: SIMETHICONE 80 MG TAB.CHEW (FP) PO PRN ×2 (16:47→23:58)
[2020-03-18 10:48] VITALS: TEMP 98.1
[2020-03-18] MEDS: ENOXAPARIN NA (PORCINE) 40 MG/0.4 ML DISP.SYRIN SQ SCH (11:08)
[2020-03-18] MEDS: PRENATAL VITAMINS W/ FOLIC ACID TABLET (FP) PO SCH (11:08)
[2020-03-18] MEDS: SIMETHICONE 80 MG TAB.CHEW (FP) PO PRN ×2 (11:09→15:51)
[2020-03-18] MEDS: ACETAMINOPHEN 325 MG TABLET (FP) PO PRN ×2 (11:09→15:51)
[2020-03-18] MEDS: FERROUS SO4 325 MG TABLET (FP) PO SCH (11:09)
[2020-03-18 17:26] VITALS: BP 139/81; PULSE 86
--- NOTE | 2020-03-18 18:14 | DS ---
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-PLANT SUPERVISOR Vital Signs: Vital Signs Temperature 98.1 F 03/18/20 09:00 Pulse Rate 86 03/18/20 15:00 Respiratory Rate 20 03/18/20 15:00 Blood Pressure 139/81 03/18/20 15:00 O2 Sat by Pulse Oximetry (%) 98 03/17/20 09:50 Constitutional: Yes: Well Nourished, No Distress, Calm Eyes: Yes: WNL, Conjunctiva Clear, EOM Intact HENT: Yes: WNL, Atraumatic, Normocephalic Neck: Yes: WNL, Supple, Trachea Midline Cardiovascular: Yes: WNL, Regular Rate and Rhythm Respiratory: Yes: WNL, Regular, CTA Bilaterally Gastrointestinal: Yes: WNL ...Rectal Exam: Yes: WNL Renal/: Yes: WNL Breast(s): Yes: WNL Musculoskeletal: Yes: WNL Extremities: Yes: WNL Integumentary: Yes: WNL Neurological: Yes: WNL, Alert, Oriented ...Motor Strength: WNL Psychiatric: Yes: WNL, Alert, Oriented Labs: CBC, BMP 03/17/20 08:07 03/14/20 17:15 Delivery - Delivery Section: Primary, Low Flap Transverse (38 weeks, insulin dpemdent GDM, macrosomia, morbid obesity,unfavorable cx) Type of Anesthesia: Spinal Episiotomy/Laceration: None EBL (cc): 800 Delivery, Single - Stages of Labor Date of Delivery: 03/14/20 Time of Delivery: 20:18 Time Placenta Delivered: 20:20 Placenta: Yes: Manual Removal, Uterine Exploration - Condition of Assistant Wrestling Coach/Tractor Driver Present: Yes Name: Edwina Minor Gender: Female Weight: 9 lb 10 oz Position: Right, OT - 1 Minute Total Score: 7 5 Minutes Total Score: 9 - Feeding Plan Initial Plan: Exclusive throughout hospitalization Discharge Summary Problems reviewed: Yes GDM Procedures: Principal: primary LST c/s Hospital Course: no complication Plan of Treatment: folow up [facility] on Friday Condition: Stable - Instructions Diet, Activity, Other Instructions: Diabetic Diet Follow up in one week for an incision check Referrals: Minerva Adair MD [Staff Physician] - Disposition: HOME - Home Medications Comprehensive Discharge Medication List: Ambulatory Orders Insulin NPH Hum/Reg Insulin Hm [Humulin 70/30 Kwikpen] 10 unit SQ HS 03/14/20 Breast Pump 1 each MC 5XD 30 Days #1 each 03/16/20 Ferrous Sulfate [Feosol] 325 mg PO DAILY #30 tablet 03/16/20 Oxycodone HCl/Acetaminophen [Percocet 5-325 mg Tablet -] 1 - 2 tab PO Q6H PRN #20 tab MDD 4 03/16/20
--- NOTE | 2020-03-20 15:26 | PATH ---
Surgical Pathology Report Patient Name: CHARLOTTE DUENAS [facility] [place]. Rec. #: [id number] /Age/Gender: 1990 (Age: 29) / F Account: [id number] Location: [facility] OBS/CHRONIC CARE NURSE Taken: 03/14/2020 Received: 03/15/2020 Reported: 03/20/2020 Physicians: Yolanda Haynes M.D. Specimen(s) Received PLACENTA Clinical History , 38 weeks, GDM-insulin and macrosomia History of eczema, asthma as a child Final Diagnosis PLACENTA: THIRD TRIMESTER PLACENTA. TRIVASCULAR CORD. MEMBRANES WITH NO DIAGNOSTIC ABNORMALITIES. Electronically Signed Denice Sawyer M.D. Gross Description The specimen is received fresh labeled placenta and is a 652 gram, 22.0 x 18.0 x 2.3 cm. placenta with attached membranes and umbilical cord. The attached membranes are orosco, translucent with focal opacities and insert marginally. The umbilical cord measures 27 cm. in length and averages 1 cm. in diameter. The cord inserts eccentrically, 7 cm. to the nearest margin. No true knots or strictures are identified. Cut surface of the umbilical cord reveals 3 vessels. The surface is casillas-blue with minimal fibrin deposition and appropriate caliber vessels. The maternal surface is red-brown with focal defects. Sectioning reveals red-brown, spongy parenchyma. No lesions are identified. Billet Sawyer sections are submitted in three cassettes as follows: 1- membrane rolls and umbilical cord; 2-3- full thickness sections of placenta. /03/17/2020 saudi/03/17/2020
== END 2020-03-18 17:15 | disposition home or self-care (01) | DRG 540 ==
LOC: JLDR 15:48 → EDBD 15:48 → J3W 03-15 01:39
PROVIDERS: ADMIT Obstetrics & Gynecology; ATTEND Obstetrics & Gynecology
PROC: 10D00Z1 Extraction of Products of Conception, Low, Open Approach (ICD-10-PCS; principal; 2020-03-14)
DX: O82 Encounter for cesarean delivery without indication (principal); O24.424 Gestational diabetes mellitus in childbirth, insulin controlled; O34.43 Maternal care for other abnormalities of cervix, third trimester; O36.63X0 Maternal care for excessive fetal growth, third trimester, not applicable or unspecified; Z37.0 Single live birth; O99.214 Obesity complicating childbirth; E66.01 Morbid (severe) obesity due to excess calories; Z3A.38 38 weeks gestation of pregnancy
CPT/HCPCS: 36415; 36600; 80048; 80076; 82565; 82803; 82962; 84156; 84550; 85025; 85610; 85730; 86780; 86850; 86900; 86901; 88307-TC; C9803; U0003

== ENCOUNTER 2020-03-20 12:06 | Inpatient (IN) | payer OTHER ==
--- NOTE | 2020-03-20 12:13 | PDOC ---
Rapid Medical Evaluation Time Seen by Provider: 03/20/20 12:09 Medical Evaluation: Allergies Allergy/AdvReac Type Severity Reaction Status Date / Time No Known Allergies Allergy Verified 03/14/20 17:33 03/20/20 12:10 29 year old female s/p C section Friday complaining of fever chill abdominal pain. Discharged Friday OB: Dr Adair VS: 148/86 HR 104 PE: TTP to lower abdomen Plan: Labs TVUS Pt to precede to ED for further evaluation
[2020-03-20] MEDS ORDERED: ACETAMINOPHEN 1000 MG/100 ML VIAL (NON FORMULARY) IVPB ONE (12:15)
[2020-03-20 12:16] VITALS: BMI 41.0
[2020-03-20] MEDS ORDERED: morphine CARPU-JECT 4 MG/1 ML DISP.SYRIN IVPUSH ONE (12:35)
--- OUTSIDE RECORDS SUMMARY | 2020-03-20 12:44 | XMS ---
:1990 [facility] Name Relationship Address Phone UE, UNEMPLOYED Unavailable Unavailable Unavailable UE Unavailable Unavailable Unavailable GERSON VICTORIA AUNT [address] [phone] [place] [address] GERSON VICTORIA Other [address] [place] [address] Re-disclosure Warning The records that you are [...] is protected by Article 27-F of the [facility] Public Health law. If you continue you may haveaccess to information: Regarding HIV / AIDS; Provided by facilities licensed or operated by the [facility] Office of Mental Health; or Provided by the [facility] Office for People With Developmental Disabilities. If such information is present, then the following [facility] mandated warning applies: This information has been [...] law may result in a fine or senior living sentence or both. A general authorization for the release of medical or other information is NOT sufficient authorization for further disclosure. Insurance Providers Payer name Policy type Policy ID Covered Covered libertarian's Policy P nino / Coverage libertarian ID relationship to Tracey Inf ormation type tracey [employer] [id number] SP [id number] X AFFINITY [id number] SP [id number] Results ID Date Data Source [id number] 03/15/2020 08:50:00 AM EDT [facility] Name Value Range Interpretation Code Description Data Leigh rce(s) Supporting Document(s ) SARS COV-2 [facility] This lab was ordered by [facility]. and reported by [facility]. ID Date Data Source [id number] 03/14/2020 06:40:00 PM EDT [facility] Name Value Range Interpretation Description Data Sup porting Code Source(s) Document(s ) SARS [facility] coronavirus 2 RNA This lab was ordered by [facility] and reported by [facility]. Procedure
--- NOTE | 2020-03-20 12:52 | PDOC ---
Documentation entered by Oralia Arroyo SCRIBE, acting as scribe for Joao Chawla MD. Joao Chawla MD: This documentation has been prepared by the Cruz arthur Xhesika, SCRIBE, under my direction and personally reviewed by me in its entirety. I confirm that the documentation accurately reflects all work, treatment, procedures, and medical decision making performed by me. Attending Attestation - Resident Resident Name: Dave Rosa - ED Attending Attestation I have performed the following: I have examined & evaluated the patient, The case was reviewed & discussed with the resident, I agree w/resident's findings & plan, Exceptions are as noted - HPI HPI: 03/20/20 12:32 The patient is a 29y/o F, s/p C section (03/14/20) who presents to the ED for fever, chills, and abdominal pain. Pt states she was discharged Friday (03/18/20) and was feeling well. However yesterday night she started having chills, lower abdominal pain and came to the ED for evaluation. She notes some scant vaginal bleeding but is not particularly foul smelling. Deneis any cp, sob, back pain, diarrhea, melena. Allergies: NKDA OB: Dr Adair 03/20/20 13:05 - Physicial Exam PE: 03/20/20 12:48 General: No acute distress Abd: moderate lower abd tenderness, no rebound/guarding, no cva tenderness, fannensteil incision without erythema/induration/fluctuance/tenderness Card: slightly tachycardic Pulm: cta b/l 03/20/20 14:10 - Medical Decision Making 03/20/20 12:49 cocern for possible endometritis vs retained products will obtain labs, US analgesia, fluids will dw OB lui start abx 03/20/20 14:07 Discharge - Follow up/Referral Referrals: Samy Mejia MD [Primary Care Provider] - - Patient Discharge Instructions - Post Discharge Activity
--- NOTE | 2020-03-20 13:09 | PDOC ---
History of Present Illness - General Chief Complaint: Vaginal Bleeding Stated Complaint: PAIN Time Seen by Provider: 03/20/20 12:09 History Source: Patient Exam Limitations: No Limitations - History of Present Illness Initial Comments: 03/20/20 12:45 29F with PMH of gestational DM presents to ED with fevers/chills and abdominal pain that started yesterday. She had last friday, preformed by Dr. Marie, and discharged Friday. Reports foul smelling lochia, w/o change in volume. She denies drainage or discharge from surgical incision. Denies nausea, vomiting, dysuria, diarrhea, constipation. OB: Dr. Adair ROS: VITALS: tachycardic and febrile (101.9F) GENERAL/CONSTITUTIONAL: +fever/chills. CARDIOVASCULAR: No chest pain or shortness of breath GASTROINTESTINAL: No nausea, vomiting, diarrhea or constipation. ABDOMINAL: + abdominal tenderness GENITOURINARY: No dysuria, frequency, or change in urination. NEUROLOGIC: No headache PE: GENERAL: AOx3; no apparent distress HEAD: NC/AT CARDIO: RRR, normal S1/S2, no murmurs, rubs, or gallops. Peripheral pulses 2+ and equal bilaterally. LUNGS: No distress, speaks full sentences, CTA bilaterally ABDOMEN: Soft, non-distended. Fundus palpable with tenderness and voluntary guarding. PELVIC: difficult to appreciate the cervical os, foul smelling lochia/blood in the vaginal canal, no cervical motion tenderness SKIN: Warm, Dry, normal turgor. No rashes or lesions noted Assessment and Plan 1. retained products of conception 2. chorioamnionitis Dave Rosa, PGY1 Emergency Medicine Past History - Medical History Allergies/Adverse Reactions: Allergies Allergy/AdvReac Type Severity Reaction Status Date / Time No Known Allergies Allergy Verified 03/20/20 12:10 Home Medications: Ambulatory Orders Ferrous Sulfate [Feosol] 325 mg PO DAILY #30 tablet 03/16/20 Oxycodone HCl/Acetaminophen [Percocet 5-325 mg Tablet -] 1 - 2 tab PO Q6H PRN #20 tab MDD 4 03/16/20 No122/Iron/Folic Acid [ Multi Tablet] 1 each PO DAILY 03/20/20 Anemia: Yes Asthma: Yes (as a child) Cancer: No Cardiac Disorders: No COPD: No Diabetes: Yes (insulin dependent GDM) HTN: No Seizures: No Thyroid Disease: No - Reproductive History Is Patient Now?: No - Psycho-Social/Smoking History Smoking History: Never smoked Have you smoked in the past 12 months: No - Substance Abuse Hx (Audit-C & DAST Scrn) How often the patient has a drink containing alcohol: Never Score: In Men: 4 or > Positive; In Women: 3 or > Positive: 0 Screen Result (Pos requires Nsg. Audit-10AR): Negative In the last yr the pt used illegal drug/Rx for NonMed reason: No Score: Yes response is considered Positive: 0 Screen Result (Positive result requires Nsg. DAST-10): Negative *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 - Vital Signs Last Vital Signs Temp Pulse Resp BP Pulse Ox 101.9 F H 109 H 18 148/86 100 03/20/20 12:10 03/20/20 12:10 03/20/20 12:10 03/20/20 12:10 03/20/20 12:10 ED Treatment Course - LABORATORY CBC & Chemistry Diagram: 03/20/20 12:40 03/20/20 12:40 Medical Decision Making - Medical Decision Making 03/20/20 14:16 29F presents with abdominal pain, fevers/chills after 6 days ago. She's febrile and tachy. On exam, pt had tenderness with palpable fundus, fair amount of foul smelling lochia and blood, did not appear purulent. -> DDx: post- endometritis vs retained products of conception -> will get CBC, CMP, blood cultures, TVUS (assess for retained products) 03/20/20 14:17 CBC, CMP wnl. Pt given IV gentamicin and clindamycin. Given morphine, acetaminophen, and 1L LR. 03/20/20 17:31 TVUS: Nonspecific avascular heterogenous material seen within endometrial canal which may represent clotted blood and/or retained products of conception. Complex fluid in cervical canal. Pt currently afebrile and no longer tachycardic. Will contact OB. 03/20/20 17:53 Dr. Jacobson was consulted, and stated that he would come see the pt. He stated that it was more likely endometritis than retained products on conception. 03/20/20 19:03 Dr. Jacobson saw the patient, and talked to pt's RN, Evelia, and stated that she would be admitted under him. Discharge - Discharge Information Problems reviewed: Yes Clinical Impression/Diagnosis: fever Condition: Fair - Admission Yes - Follow up/Referral Referrals: Samy Mejia MD [Primary Care Provider] - - Patient Discharge Instructions - Post Discharge Activity
[2020-03-20 13:33] LABS: BASO % 0.4 % (0-2.0); EOS % 0.5 % (0-4.5); HEMATOCRIT 33.9 % (32.4-45.2); HEMOGLOBIN 11.3 GM/dL (10.7-15.3); LYMPH % 11.5 % (8-40); MCH 30.8 pg (25.7-33.7); MCHC 33.2 g/dl (32.0-36.0); MEAN CELL VOLUME 92.8 fl (80-96); MONO % 6.8 % (3.8-10.2); NEUT % 80.8 % (42.8-82.8); PLATELET COUNT 163 K/MM3 (134-434); RBC 3.65 M/mm3 (3.60-5.2); RDW 14.9 % (11.6-15.6); WHITE BLOOD COUNT 5.4 K/mm3 (4.0-10.0)
[2020-03-20 13:40] LABS: INR 1.24 (0.83-1.09); PROTHROMBIN TIME (PATIENT) 14.5 SEC (9.7-13.0)
[2020-03-20] MEDS ORDERED: CLINDAMYCIN 900 MG PREMIX IVPB 900 MG/50 ML BAG IVPB ONE ×2 (14:04→15:25)
[2020-03-20] MEDS ORDERED: WATER IVPB STA (14:08)
[2020-03-20] MEDS ORDERED: GENTAMICIN IVPB STA (14:08)
[2020-03-20] MEDS ORDERED: DEXTROSE 5% IVPB STA (14:08)
[2020-03-20 14:11] LABS: ALBUMIN 2.5 g/dl (3.4-5.0); BILIRUBIN,TOTAL 0.7 mg/dL (0.2-1); BLOOD UREA NITROGEN 6.4 mg/dL (7-18); CALCIUM 8.3 mg/dL (8.5-10.1); CREATININE 0.7 mg/dL (0.55-1.3); POTASSIUM 3.7 mmol/L (3.5-5.1); TOT PROT 5.9 g/dl (6.4-8.2)
[2020-03-20] MEDS ORDERED: LACTATED RINGERS SOLUTION 1000 ML INFUS.BAG IV ONE (14:15)
[2020-03-20] MEDS ORDERED: ACETAMINOPHEN INJECTION 100 ML IVPB ONE (14:17)
[2020-03-20] MEDS ORDERED: morphine SULFATE 4 MG/ML VIAL ONE (14:17)
[2020-03-20] MEDS ORDERED: oxyCODONE HCL 5 MG TABLET PO PRN (18:59)
--- NOTE | 2020-03-20 19:09 | HP ---
Admitting History and Physical - Primary Care Physician PCP: Oz Jacobson - Admission Chief Complaint: Fevers, chills and abdominal pain on POD # 6 following C/S History of Present Illness: Patient underwent primary C/S on 01/13/20 and complicated by GDM. She was discharged on 03/18/20 and starting to have chills and fever last night. She reports abdominal pain associated with her presentation. 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: No: Alzheimer's, CVA, Dementia, Migraine, Multiple Sclerosis, Peripheral Neuropathy, Parkinson's, Seizure, Syncope, TIA, Vertigo, Other Cardiovascular: No: AFIB, Aneurysm, Aortic Insufficiency, Aortic Stenosis, CAD, CHF, Deep Vein Thrombosis, HTN, Hyperlipdemia, ID, Mitral Insufficiency, Mitral Stenosis, Murmur, Pulmonary Hypertension, Other Pulmonary: No: Asthma, Bronchitis, Cancer, COPD, O2 Dependent, Pneumonia, Previously Intubated, Pulmonary Embolus, Pulmonary Fibrosis, Sleep Apnea, Other Gastrointestinal: No: Ascites, Cancer, Constipation, Crohn's Disease, Diverticulitis, Diverticulosis, Esophageal Varices, Gastritis, GERD, GI Bleed, Hemorrhoids, Hiatal Hernia, Inflamatory Bowel Disease, Irritable Bowel Disease, Pancreatitis, Peptic Ulcer Disease, Ulcerative Colitis, Other Hepatobiliary: No: Cirrhosis, Cholelithiasis, Cholecystitis, Choledo cholithiasis, Hepatitis A, Hepatitis B, Hepatitis C, Other Renal/: No: Renal Failure, Renal Inusuff, BPH, Cancer, Hematuria, Hemodialysis, Neurogenic Bladder, Renal Calculi, UTI, Other Reproductive: No: Ectopic , Endometriosis, Fibroids, PID, Polycystic Ovary Syndrome, Postmenopausal, Other ...LMP: 03/20/20 ...: No Heme/Onc: No: Anemia, B12 Deficiency, Bleeding Disorder, Cancer, Current Chemotherapy, Current Radiation Therapy, Hemochromatosis, Hypercoaguable State, Myeloproliferative Synd, Sickle Cell Disease, Sickle Cell Trait, Thrombocytopenia, Other Infectious Disease: No: AIDS, C-Diff, Herpes Zoster, HIV, MRSA, STD's, T uberculosis, VREF, Other Psych: No: Addictions, Anxiety, Bipolar, Depression, Panic, Psychosis, Schizophrenia, Other Musculoskeletal: No: Bursitis, Chronic low back pain, Hemiparesis, Hemiplegia, Osteoarthritis, Paraplegia, Other Rheumatology: No: Fibromyalgia, Gout, Lupus, Rheumatoid Arthritis, Sarcoidosis, Vasculitis, Other ENT: No: Allergic Rhinitis, Sinusitis, Other Endocrine: No: Dougherty's Disease, Mojgan's Disease, Diabetes Insipidus, Diabetes Mellitus, Hyperparathyroidism, Hyperthyroidism, Hypothyroidism, Osteopenia, SIADH, Other - Past Surgical History Past Surgical History: Yes: - Smoking History Smoking history: Never smoked Have you smoked in the past 12 months: No - Alcohol/Substance Use Hx Alcohol Use: No History of Substance Use: reports: None - Social History History of Recent Travel: No Home Medications - Allergies Allergies/Adverse Reactions: Allergies Allergy/AdvReac Type Severity Reaction Status Date / Time No Known Allergies Allergy Verified 03/20/20 12:10 - Home Medications Home Medications: Ambulatory Orders Ferrous Sulfate [Feosol] 325 mg PO DAILY #30 tablet 03/16/20 Oxycodone HCl/Acetaminophen [Percocet 5-325 mg Tablet -] 1 - 2 tab PO Q6H PRN #20 tab MDD 4 03/16/20 No122/Iron/Folic Acid [ Multi Tablet] 1 each PO DAILY 03/20/20 Family Medical History Family Hx Diabetes: Mother Other Family History: HTN (mother) Review of Systems Findings/Remarks: Patient denies URS and sick contacts at home - Review of Systems Constitutional: reports: Chills, Fever Eyes: reports: No Symptoms HENT: reports: No Symptoms Neck: reports: No Symptoms Cardiovascular: reports: No Symptoms Respiratory: reports: No Symptoms Gastrointestinal: reports: Abdominal Pain Genitourinary: reports: No Symptoms Breasts: reports: No Symptoms Reported Musculoskeletal: reports: No Symptoms Integumentary: reports: No Symptoms Neurological: reports: No Symptoms Endocrine: reports: No Symptoms Hematology/Lymphatic: reports: No Symptoms Psychiatric: reports: No Symptoms 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ination Vital Signs: Vital Signs Temperature 99.2 F 03/20/20 15:40 Pulse Rate 71 03/20/20 15:40 Respiratory Rate 18 03/20/20 15:40 Blood Pressure 120/71 03/20/20 15:40 O2 Sat by Pulse Oximetry (%) 98 03/20/20 15:40 Constitutional: Yes: Well Nourished HENT: Yes: Atraumatic Neck: Yes: Supple Cardiovascular: Yes: Regular Rate and Rhythm Respiratory: Yes: Regular Gastrointestinal: Yes: Abdomen, Obese (mild fundal tenderness, no rebound, no guarding, incision is closed and trisha in place, no erythema, no crepitus, no induration, no purulrnt discharge) ...Rectal Exam: Yes: Deferred Renal/: Yes: Vaginal Bleeding (lochia) Breast(s): Yes: Other Musculoskeletal: Yes: WNL Extremities: Yes: WNL Edema: Yes Edema: LLE: Trace, RLE: Trace Integumentary: Yes: WNL Wound/Incision: Yes: Clean/Dry, Well Approximated, [place] Intact Neurological: Yes: Alert, Oriented ...Motor Strength: WNL Psychiatric: Yes: Alert, Oriented Labs: CBC, BMP 03/20/20 12:40 03/20/20 12:40 Imaging - Results Ultrasound: Report Reviewed Problem List - Problems (1) Acute endomyometritis Code(s): N71.0 - ACUTE INFLAMMATORY DISEASE OF UTERUS Assessment/Plan 29 y/o on POD # 6 S/P PLTCS for complicated by obesity, GDM and HTN. Presentation is consistent with acute endomyometritis. 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 -Admit -IV Abx -F/U cultures and AM labs -Repeat covid-19 testing -Regular diet -Monitor BP and consisder antihypertensives as required
--- OUTSIDE RECORDS SUMMARY | 2020-03-20 20:01 | XMS ---
:1990 Author Organization [facility] Support Name Relationship Address Phone UE, UNEMPLOYED Unavailable Unavailable Unavailable UE Unavailable Unavailable Unavailable GERSON VICTORIA AUNT [address] [place] [address] GERSON VICTORIA Other [address] [place] [address] Re-disclosure Warning The records that you are [...] is protected by Article 27-F of the [facility] Public Health law. If you continue you may haveaccess to information: Regarding HIV / AIDS; Provided by facilities licensed or operated by the [facility] Office of Mental Health; or Provided by the [facility] Office for People With Developmental Disabilities. If such information is present, then the following [facility] mandated warning applies: This information has [...] law may result in a fine or correction sentence or both. A general authorization for the release of medical or other information is NOT sufficient authorization for further disclosure. Insurance Providers Payer name Policy type Policy ID Covered Covered democrat's Policy P nino / Coverage democrat ID relationship to Tracey Inf ormation type tracey [employer] [id number] SP [id number] X [place] [id number] SP [id number] Results ID Date Data Source [id number] 03/15/2020 08:50:00 AM EDT [facility] Name Value Range Interpretation Code Description Data Leigh rce(s) Supporting Document(s ) SARS COV-2 [facility] RT-PCR This lab was ordered by [facility]. and reported by [facility]. ID Date Data Source [id number] 03/14/2020 06:40:00 PM EDT [facility] Name Value Range Interpretation Description Data Sup porting Code Source(s) Document(s ) SARS [facility] coronavirus 2 RNA This lab was ordered by [facility] and reported by [facility]. Procedure
[2020-03-20] MEDS: AMPICILLIN NA/SULBACTAM NA 3 GM in SODIUM CHLORIDE 100 ML IVPB SCH (20:47)
[2020-03-20] MEDS ORDERED: ACETAMINOPHEN 325 MG TABLET (FP) ONE (20:48)
[2020-03-20] MEDS: ACETAMINOPHEN 325 MG TABLET (FP) PO PRN (20:50)
[2020-03-21 01:25] LABS: EPI CELLS 4 /uL (0-25.1); HYALINE CASTS 8 /uL (0-3.1); PH,URINE 6.5 (5.0-8.0); URINE APPEARANCE CLOUDY; URINE BACTERIA 104 /uL (0-1359); URINE BILIRUBIN NEGATIVE (NEGATIVE); URINE COLOR ORANGE; URINE GLUCOSE (UA) NEGATIVE (NEGATIVE); URINE KETONE NEGATIVE (NEGATIVE); URINE LEUK ESTERASE 2+ (NEGATIVE); URINE NITRITE NEGATIVE (NEGATIVE); URINE PROTEIN 1+ (NEGATIVE); URINE RBC 1927 /uL (0-23.9); URINE WBC 343 /uL (0-25.8)
[2020-03-21] MEDS: AMPICILLIN NA/SULBACTAM NA 3 GM in SODIUM CHLORIDE 100 ML IVPB SCH ×4 (03:19→20:56)
[2020-03-21] MEDS: ACETAMINOPHEN 325 MG TABLET (FP) PO PRN ×2 (07:46→18:03)
--- NOTE | 2020-03-21 07:51 | PN ---
Post Progress Note - Subjective Subjective: Ambulating, tolerating PO, no N/V, difficulty voiding due to pain, no CT, no coughing, no sneezing Post Day: 7 Type of Delivery: Primary C/S Vital Signs: Vital Signs Temperature 98.3 F 03/21/20 05:00 Pulse Rate 81 03/21/20 05:00 Respiratory Rate 18 03/21/20 05:00 Blood Pressure 134/84 03/21/20 05:00 O2 Sat by Pulse Oximetry (%) 97 03/21/20 05:00 Breast Exam: Yes: Other Uterus: Yes: Fundus Firm, Fundus above umbilicus Incision: Yes: Kike intact (removed, incision closed, no erythem, no induration, no purulent discharge) Abdomen/GI: Yes: Abdomen soft (obese, no guarding, periumbilical tenderness on palpation, no guarding) Lochia, amount: Moderate Extremities: Yes: Calves non-tender Perineum: Yes: Intact Activity: Ambulating - Labs Labs: CBC WBC 5.4 K/mm3 (4.0-10.0) 03/20/20 12:40 RBC 3.65 M/mm3 (3.60-5.2) 03/20/20 12:40 Hgb 11.3 GM/dL (10.7-15.3) 03/20/20 12:40 Hct 33.9 % (32.4-45.2) 03/20/20 12:40 MCV 92.8 fl (80-96) 03/20/20 12:40 MCH 30.8 pg (25.7-33.7) 03/20/20 12:40 MCHC 33.2 g/dl (32.0-36.0) 03/20/20 12:40 RDW 14.9 % (11.6-15.6) 03/20/20 12:40 Plt Count 163 K/MM3 (134-434) D 03/20/20 12:40 MPV 9.0 fl (7.5-11.1) D 03/20/20 12:40 Absolute Neuts (auto) 4.4 K/mm3 (1.5-8.0) 03/20/20 12:40 Neutrophils % 80.8 % (42.8-82.8) 03/20/20 12:40 Lymphocytes % 11.5 % (8-40) D 03/20/20 12:40 Monocytes % 6.8 % (3.8-10.2) 03/20/20 12:40 Eosinophils % 0.5 % (0-4.5) 03/20/20 12:40 Basophils % 0.4 % (0-2.0) 03/20/20 12:40 Nucleated RBC % 0 % (0-0) 03/20/20 12:40 Problem List - Problems (1) Acute endomyometritis Code(s): N71.0 - ACUTE INFLAMMATORY DISEASE OF UTERUS Assessment/Plan 29 y/o on POD # 7 and complicated by obesity and gestational diabetes, admitted for endomyometritis. Patient is requesting to eat and last febrile at approximately 9pm yesterday. -Continue IV Abx -F/U Ux and Bx -AM CBC -regular diet -Encourage ambulation -F/U covid testing results
[2020-03-21 08:08] LABS: BASO % 0.5 % (0-2.0); EOS % 0.8 % (0-4.5); HEMATOCRIT 34.9 % (32.4-45.2); HEMOGLOBIN 11.8 GM/dL (10.7-15.3); LYMPH % 26.8 % (8-40); MCH 31.6 pg (25.7-33.7); MCHC 33.7 g/dl (32.0-36.0); MEAN CELL VOLUME 93.7 fl (80-96); MEAN PLT VOLUME 8.6 fl (7.5-11.1); MONO % 10.1 % (3.8-10.2); NEUT % 61.8 % (42.8-82.8); PLATELET COUNT 165 K/MM3 (134-434); RBC 3.73 M/mm3 (3.60-5.2); RDW 14.7 % (11.6-15.6)
[2020-03-21] MEDS: SIMETHICONE 80 MG TAB.CHEW (FP) PO PRN ×2 (09:19→18:03)
[2020-03-21] MEDS ORDERED: BISACODYL 10 MG SUPP.RECT RC PRN (18:59)
[2020-03-22] MEDS: AMPICILLIN NA/SULBACTAM NA 3 GM in SODIUM CHLORIDE 100 ML IVPB SCH ×4 (02:31→20:41)
[2020-03-22] MEDS: ACETAMINOPHEN 325 MG TABLET (FP) PO PRN ×2 (08:37→18:05)
[2020-03-22] MEDS: SIMETHICONE 80 MG TAB.CHEW (FP) PO PRN ×2 (08:37→18:05)
--- NOTE | 2020-03-22 08:52 | PN ---
Post Progress Note - Subjective Subjective: c/o pain in her abdominal area when she gets up. c/o headache pt crying that she is not well feels upset voiding without difficulty Post Day: 8 Type of Delivery: Primary C/S Vital Signs: Vital Signs Temperature 98.2 F 03/22/20 05:58 Pulse Rate 68 03/22/20 05:58 Respiratory Rate 18 03/22/20 05:58 Blood Pressure 134/92 03/22/20 05:58 O2 Sat by Pulse Oximetry (%) 97 03/21/20 05:00 Breast Exam: Yes: Soft, Other (pumping dumping milk ). No: Engorged (not tender ) Uterus: Yes: Fundus Firm, Fundus below umbilicus (tender to to touch . ) Incision: Yes: Other (incision edges in Rt corner of incision not well approximated, steri strips applied ) Lochia: Yes: Rubra Lochia, amount: Small (not foul smelling) Perineum: Yes: Intact Activity: Ambulating - Labs Labs: CBC WBC 4.0 K/mm3 (4.0-10.0) 03/21/20 08:00 RBC 3.73 M/mm3 (3.60-5.2) 03/21/20 08:00 Hgb 11.8 GM/dL (10.7-15.3) 03/21/20 08:00 Hct 34.9 % (32.4-45.2) 03/21/20 08:00 MCV 93.7 fl (80-96) 03/21/20 08:00 MCH 31.6 pg (25.7-33.7) 03/21/20 08:00 MCHC 33.7 g/dl (32.0-36.0) 03/21/20 08:00 RDW 14.7 % (11.6-15.6) 03/21/20 08:00 Plt Count 165 K/MM3 (134-434) 03/21/20 08:00 MPV 8.6 fl (7.5-11.1) 03/21/20 08:00 Absolute Neuts (auto) 2.5 K/mm3 (1.5-8.0) 03/21/20 08:00 Neutrophils % 61.8 % (42.8-82.8) D 03/21/20 08:00 Lymphocytes % 26.8 % (8-40) D 03/21/20 08:00 Monocytes % 10.1 % (3.8-10.2) 03/21/20 08:00 Eosinophils % 0.8 % (0-4.5) 03/21/20 08:00 Basophils % 0.5 % (0-2.0) 03/21/20 08:00 Nucleated RBC % 0 % (0-0) 03/21/20 08:00 Laboratory Tests 03/20/20 03/21/20 12:40 07:36 Sodium 139 Potassium 3.7 Chloride 107 Carbon Dioxide 26 Anion Gap 6 L BUN 6.4 L Creatinine 0.7 Est GFR (CKD-EPI)AfAm 134.75 Est GFR (CKD-EPI)NonAf 116.26 POC Glucometer 81 Random Glucose 100 Calcium 8.3 L Total Bilirubin 0.7 AST 38 H ALT 47 Alkaline Phosphatase 122 H Total Protein 5.9 L Albumin 2.5 L Lipase 137 Laboratory Tests 03/20/20 03/21/20 19:05 00:45 Urine Protein 1+ H Urine Blood 3+ H Urine Urobilinogen 1.0 Ur Leukocyte Esterase 2+ H Urine WBC (Auto) 343 Urine RBC (Auto) 1927 Urine Casts (Auto) 8 U Epithel Cells (Auto) 4 Urine Bacteria (Auto) 104 COVID-19 (EDUARDO) Not detected Problem List - Problems (1) Acute endomyometritis Code(s): N71.0 - ACUTE INFLAMMATORY DISEASE OF UTERUS Assessment/Plan pt rehospitalized post ceasrean section day #6 due to high fever suspected ac endomyometritis .wbc count normal possible UTi post mild hypertension is noted since pt is symptomatic , I started Po Labetalol 200 mg bid for her today ct iv Unasyn pending urine culture reports . blood cultures neg do not discharge today.
[2020-03-22] MEDS ORDERED: LABETALOL HCL 200 MG TABLET (FP) PO SCH (10:00)
[2020-03-22] MEDS: LABETALOL HCL 200 MG TABLET (FP) PO SCH ×2 (14:30→21:35)
[2020-03-23] MEDS: AMPICILLIN NA/SULBACTAM NA 3 GM in SODIUM CHLORIDE 100 ML IVPB SCH ×2 (02:55→08:50)
[2020-03-23] MEDS: ACETAMINOPHEN 325 MG TABLET (FP) PO PRN ×2 (05:40→21:11)
[2020-03-23] MEDS: SIMETHICONE 80 MG TAB.CHEW (FP) PO PRN ×2 (05:41→21:11)
[2020-03-23] MEDS ORDERED: LABETALOL HCL 200 MG TABLET (FP) PO SCH (06:00)
--- NOTE | 2020-03-23 08:16 | PN ---
Progress Note, Physician Chief Complaint: PP Fever - Current Medication List Current Medications: Active Medications Acetaminophen (Tylenol -) 650 mg PO Q4H PRN PRN Reason: FEVER Last Admin: 03/23/20 05:40 Dose: 650 mg Documented by: Bisacodyl (Dulcolax Suppository -) 10 mg RC PRN PRN PRN Reason: CONSTIPATION Ampicillin Sodium/Sulbactam (Sodium 3 gm/ Sodium Chloride) 100 mls @ 200 mls/hr IVPB Q6H-IV AINSLEY Last Admin: 03/23/20 02:55 Dose: 200 mls/hr Documented by: Ibuprofen (Motrin -) 600 mg PO Q6H PRN PRN Reason: PAIN LEVEL 1 - 3 Labetalol HCl (Normodyne -) 200 mg PO TID AINSLEY Last Admin: 03/23/20 05:42 Dose: 200 mg Documented by: Oxycodone HCl (Roxicodone -) 5 mg PO Q6H PRN PRN Reason: PAIN LEVEL 7 - 10 Simethicone (Mylicon -) 80 mg PO Q4H PRN PRN Reason: GAS Last Admin: 03/23/20 05:41 Dose: 80 mg Documented by: - Objective Vital Signs: Vital Signs Temperature 98.1 F 03/23/20 05:36 Pulse Rate 65 03/23/20 05:36 Respiratory Rate 20 03/23/20 05:36 Blood Pressure 137/88 03/23/20 05:36 O2 Sat by Pulse Oximetry (%) 97 03/22/20 13:25 Gastrointestinal: Yes: Soft, Abdomen, Obese Extremities: Yes: WNL Edema: No Labs: CBC, BMP 03/21/20 08:00 03/20/20 12:40 INR, PTT INR 1.24 (0.83-1.09) H 03/20/20 12:40 Assessment/Plan 29yo s/p PLTCS here with PP fevers, endometritis. On Unasyn by admitting MD, now over 24 hours afebrile Pain better controlled BPs stable, on PO Labetalol. Neg PEC labs. Cultures reviewed, negative WBC normal. Plan for d/c to home today with office follow up next week.
[2020-03-23] MEDS ORDERED: LABETALOL HCL 200 MG TABLET (FP) PO PRN (12:06)
--- NOTE | 2020-03-23 12:37 | CON.NEP ---
Consult Consult Specialty:: Nephrology Referred by:: Dr. Marie Reason for Consultation:: hypertension - History of Present Illness Chief Complaint: Abdominal pain History of Present Illness: This is a 29 year old woman with history of gestational DM who presented 1 week s/p with abdominal wall tenderness and drainage at C- section site and found to have hypertension. Seen and examined at the bedside. She reports her abdomen feels much better s/p antibiotics. Denies any fever or chills. No chest pain, shortness of breath, headache, or blurry vision. Has no leg swelling. No flank pain. Mother had hypertension diagnosed later in life. This was her first . 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: No: Alzheimer's, CVA, Dementia, Migraine, Multiple Sclerosis, Peripheral Neuropathy, Parkinson's, Seizure, Syncope, TIA, Vertigo, Other Cardio/Vascular: No: AFIB, Aneurysm, Aortic Insufficiency, Aortic Stenosis, CAD, CHF, Deep Vein Thrombosis, HTN, Hyperlipdemia, [place], Mitral Insufficiency, Mitral Stenosis, Murmur, Pulmonary Hypertension, Other Pulmonary: No: Asthma, Bronchitis, Cancer, COPD, O2 Dependent, Pneumonia, Previously Intubated, Pulmonary Embolus, Pulmonary Fibrosis, Sleep Apnea, Other Gastrointestinal: No: Ascites, Cancer, Constipation, Crohn's Disease, Diverti culitis, Diverticulosis, Esophageal Varices, Gastritis, GERD, GI Bleed, Hemorrhoids, Hiatal Hernia, Inflamatory Bowel Disease, Irritable Bowel Disease, Pancreatitis, Peptic Ulcer Disease, Ulcerative Colitis, Other Hepatobiliary: No: Cirrhosis, Cholelithiasis, Cholecystitis, Choledocholithiasis, Hepatitis A, Hepatitis B, Hepatitis C, Other Renal/: No: Renal Failure, Renal Inusuff, BPH, Cancer, Hematuria, Hemodialysis, Neurogenic Bladder, Renal Calculi, UTI, Other ...LMP: 03/20/20 ...: No Infectious Disease: No: AIDS, C-Diff, Herpes Zoster, HIV, MRSA, STD's, Tu berculosis, VREF, Other Psych: No: Addictions, Anxiety, Bipolar, Depression, Panic, Psychosis, Schizophrenia, Other Musculoskeletal: No: Bursitis, Chronic low back pain, Hemiparesis, Hemiplegia, Osteoarthritis, Paraplegia, Other Rheumatology: No: Fibromyalgia, Gout, Lupus, Rheumatoid Arthritis, Sarcoidosis, Vasculitis, Other ENT: No: Allergic Rhinitis, Sinusitis, Other Endocrine: No: Crockett's Disease, Reinbeck's Disease, Diabetes Insipidus, Diabetes Mellitus, Hyperparathyroidism, Hyperthyroidism, Hypothyroidism, Osteopenia, SIADH, Other - Past Surgical History Past Surgical History: Yes: - Alcohol/Substance Use Hx Alcohol Use: No History of Substance Use: reports: None - Smoking History Smoking history: Never smoked Have you smoked in the past 12 months: No - Social History History of Recent Travel: No Home Medications - Allergies Allergies/Adverse Reactions: Allergies Allergy/AdvReac Type Severity Reaction Status Date / Time No Known Allergies Allergy Verified 03/20/20 12:10 - Home Medications Home Medications: Ambulatory Orders Ferrous Sulfate [Feosol] 325 mg PO DAILY #30 tablet 03/16/20 Oxycodone HCl/Acetaminophen [Percocet 5-325 mg Tablet] 1 - 2 tab PO Q6H PRN #20 tab MDD 4 03/16/20 No122/Iron/Folic Acid [ Multi Tablet] 1 each PO DAILY 03/20/20 Acetaminophen [Tylenol .Regular Strength -] 650 mg PO Q4H PRN tablet 03/22/20 Amoxicillin/Potassium Clav [Augmentin 875-125 Tablet] 1 each PO BID #14 tablet 03/22/20 Blood Pressure Kit-Extra Large [Blood Pressure Monitor] 1 each MC QID #1 kit 03/22/20 Labetalol HCl [Normodyne -] 200 mg PO BID #30 tablet 03/22/20 oxyCODONE HCL [Roxicodone -] 5 mg PO Q6H PRN tablet 03/22/20 Family Medical History Family History: Unremarkable Family Hx Diabetes: Mother Other Family History: HTN (mother) Review of Systems - Review of Systems Constitutional: reports: No Symptoms Eyes: reports: No Symptoms HENT: reports: No Symptoms Neck: reports: No Symptoms Cardiovascular: reports: No Symptoms Respiratory: reports: No Symptoms Gastrointestinal: reports: No Symptoms Genitourinary: reports: No Symptoms Musculoskeletal: reports: No Symptoms Neurological: reports: No Symptoms Endocrine: reports: No Symptoms Nephrology Consult - Height Height: 5 ft 9 in - Weight Weight: 126.099 kg - BMI Body Mass Index (BMI): 41.0 - Lab Results CBC,BMP: CBC, BMP 03/21/20 08:00 03/20/20 12:40 Anion Gap: Anion Gap Anion Gap 6 MMOL/L (8-16) L 03/20/20 12:40 - 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ination Vital Signs: Vital Signs Temperature 99 F 03/23/20 10:00 Pulse Rate 80 03/23/20 10:00 Respiratory Rate 16 03/23/20 10:00 Blood Pressure 150/96 03/23/20 10:00 O2 Sat by Pulse Oximetry (%) 98 03/23/20 10:00 Constitutional: Yes: No Distress, Calm HENT: Yes: Atraumatic Neck: Yes: Supple Cardiovascular: Yes: Regular Rate and Rhythm Respiratory: Yes: Regular Extremities: No: Cyanosis Edema: No Assessment/Plan 29 year old woman with history of gestational DM who presented 1 week s/p with abdominal wall tenderness and drainage at site and found to have hypertension. 1. hypertension 2. with fevers and endometritis. 3. Gestational DM differential for hypertension: Preeclampsia vs. PIH vs. underlying hypertension check urine for proteinuria Start Nifedpine ER 30mg daily, continue Labetalol 200mg Q6h PRN for SBP > 160 or DBP > 95 Low sodium diet Antibiotics as per OB Trend BP closely Anticipate discharge in AM Thank you Shorty Sepulveda DO
[2020-03-23] MEDS ORDERED: NIFEdipine E.R. 30 MG TABLET PO SCH (12:45)
[2020-03-23] MEDS: AMOX TR/POT CLAV 875MG/125MG TABLETS (FP) PO SCH (16:43)
[2020-03-23] MEDS: IBUPROFEN 600 MG TABLET (FP) PO PRN (21:11)
[2020-03-24 05:52] VITALS: TEMP 98.2
--- NOTE | 2020-03-24 08:13 | DS ---
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 Vital Signs: Vital Signs Temperature 98.2 F 03/24/20 05:52 Pulse Rate 70 03/24/20 05:52 Respiratory Rate 18 03/24/20 05:52 Blood Pressure 130/75 03/24/20 05:52 O2 Sat by Pulse Oximetry (%) 98 03/23/20 13:38 Constitutional: Yes: Obese Eyes: Yes: WNL, Conjunctiva Clear, EOM Intact HENT: Yes: WNL, Atraumatic, Normocephalic Neck: Yes: WNL, Supple, Trachea Midline Cardiovascular: Yes: WNL, Regular Rate and Rhythm Respiratory: Yes: WNL, Regular, CTA Bilaterally Gastrointestinal: Yes: WNL ...Rectal Exam: Yes: WNL Renal/: Yes: WNL ....Post : Yes: Uterus firm, Uterus non-tender, Slight lochia rubra Breast(s): Yes: WNL Musculoskeletal: Yes: WNL Extremities: Yes: WNL Edema: No Integumentary: Yes: WNL Wound/Incision: Yes: Clean/Dry, Well Approximated Neurological: Yes: WNL, Alert, Oriented ...Motor Strength: WNL Psychiatric: Yes: WNL, Alert, Oriented Labs: CBC, BMP 03/21/20 08:00 03/20/20 12:40 Discharge Summary Problems reviewed: Yes Reason For Visit: FEVER Current Active Problems Acute endomyometritis (Acute) Plan of Treatment: follow up [facility] 1 week Condition: Stable - Instructions Diet, Activity, Other Instructions: Discharge Instructions * Out of Bed * * Regular Diet * Skyla Care * Avoid sex for 6 weeks * rtc 1 week [id number] , f/u with Dr Haynes * If you experience excessive bleeding or fever over 101 degrees, call doctor, the clinic or go to the Emergency Room. Referrals: Yolanda Haynes MD [Staff Physician] - Samy Mejia MD [Primary Care Provider] - - Home Medications Comprehensive Discharge Medication List: Ambulatory Orders Ferrous Sulfate [Feosol] 325 mg PO DAILY #30 tablet 03/16/20 Oxycodone HCl/Acetaminophen [Percocet 5-325 mg Tablet] 1 - 2 tab PO Q6H PRN #20 tab MDD 4 03/16/20 No122/Iron/Folic Acid [ Multi Tablet] 1 each PO DAILY 10/12/20 Acetaminophen [Tylenol .Regular Strength -] 650 mg PO Q4H PRN tablet 03/22/20 Amoxicillin/Potassium Clav [Augmentin 875-125 Tablet] 1 each PO BID #14 tablet 03/22/20 Blood Pressure Kit-Extra Large [Blood Pressure Monitor] 1 each MC QID #1 kit 03/22/20 Labetalol HCl [Normodyne -] 200 mg PO BID #30 tablet 03/22/20 oxyCODONE HCL [Roxicodone -] 5 mg PO Q6H PRN tablet 03/22/20
[2020-03-24] MEDS: AMOX TR/POT CLAV 875MG/125MG TABLETS (FP) PO SCH (08:38)
[2020-03-24] MEDS: ACETAMINOPHEN 325 MG TABLET (FP) PO PRN (08:42)
[2020-03-24] MEDS: IBUPROFEN 600 MG TABLET (FP) PO PRN (08:43)
[2020-03-24 09:29] VITALS: BP 124/87; PULSE 67
== END 2020-03-24 09:35 | disposition home or self-care (01) | DRG 561 ==
LOC: JER 12:06 → JERBED 19:05 → J3W 03-21 00:50
PROVIDERS: ADMIT Student in an Organized Health Care Education/Training Program; ATTEND Student in an Organized Health Care Education/Training Program
DX: O86.12 Endometritis following delivery (principal); E66.9 Obesity, unspecified; O24.419 Gestational diabetes mellitus in pregnancy, unspecified control; O16.5 Unspecified maternal hypertension, complicating the puerperium; N39.0 Urinary tract infection, site not specified; Z68.41 Body mass index [BMI] 40.0-44.9, adult
CPT/HCPCS: 36415; 76830-TC; 80053; 81003; 82565; 82962; 83690; 84156; 85025; 85610; 86850; 86900; 86901; 87040; 87086; 99285-25; C9803; J0131; U0003